=== PATIENT | female | born 1995 | race Caucasian/White ===

== ENCOUNTER 2016-08-14 19:30 | Emergency (ER) | payer OTHER ==
--- NOTE | ~2016-08-14 | ER ---
PATIENT'S NAME: CORINNA ANDUJAR I [facility] AGE: 20 Y [address] ROOM: [place] [id number] LOCATION: [facility] ADMIT DATE: 08/14/2016 ER/Outpatient Report DISCHARGE DATE: 08/14/2016 FAMILY PHYSICIAN: PHYSICIAN, NO ATTENDING PHYSICIAN: Judi Salcido Time of arrival: 1930 hours. Time of evaluation: 2000 hours. CHIEF COMPLAINT: This is a 20-year-old female. She was previously healthy. She is in after an attempted overdose. HISTORY OF PRESENT ILLNESS: She reports that she had a difficult day at work. She states shortly after she got home she impulsively took an overdose of her trazodone. She states she took 8 pills. She states she immediately regretted it and made herself throw up, but subsequently became nauseated and sleepy, and so she presented herself here. PAST MEDICAL HISTORY: Significant for anorexia, depression, and anxiety. CURRENT MEDICATIONS: See list. REVIEW OF SYSTEMS: She denies any recent illnesses. SOCIAL HISTORY: She smokes less than one-half pack per day. She uses marijuana daily. PHYSICAL EXAMINATION: GENERAL: An alert female in no acute distress. VITAL SIGNS: Stable. SKIN: Warm and dry. Color is normal. HEAD, EARS, EYES, NOSE, AND THROAT: Normal. NECK: Supple. HEART AND LUNGS: Normal. ABDOMEN: Soft. EXTREMITIES: Normal. NEUROLOGIC: Normal. LABORATORY DATA: EKG revealed normal sinus rhythm, normal corrected QT interval. The crisis PATIENT'S NAME: CORINNA ANDUJAR I [facility] AGE: 20 Y [address] ROOM: [place] [id number] LOCATION: [facility] ADMIT DATE: 08/14/2016 ER/Outpatient Report DISCHARGE DATE: 08/14/2016 FAMILY PHYSICIAN: PHYSICIAN, NO ATTENDING PHYSICIAN: Judi Salcido counselor was called and evaluated the patient. Safety contract was drawn up, and the patient was discharged in the care of her grandmother. ASSESSMENT: Overdose/suicide attempt. PLAN: Follow up with her regular doctor as arranged. JUDI SALCIDO MD JDB/modl /[id number] d: 08/15/16 0737 t: 08/17/16 0441, OUTPATIENT REPORT
[2016-08-14 20:12] LABS: BASOPHIL % 0.5 %; EOSINOPHIL % 0.4 %; HEMATOCRIT 39.4 % (33.0-46.0); HEMOGLOBIN 13.3 g/dL (11.0-15.0); IMMATURE GRANULOCYTE % 0.1 %; LYMPHOCYTE # 1.4 K/uL (0.8-4.0); LYMPHOCYTE % 17.8 %; MCH 29.2 pg (27.0-34.0); MCHC 33.8 gm/dL (32.0-36.5); MCV 86.6 fl (83.0-98.0); MONOCYTE # 0.2 K/uL (0.0-1.0); MPV 10.6 fl (9.4-12.4); NEUTROPHIL # (ANC) 6.1 K/uL (1.8-7.8); NEUTROPHIL % 78.2 %; NRBC % 0 /100WBC (0-0.00); PLATELET COUNT 183 K/uL (150-450); RBC 4.55 M/uL (3.50-5.00); RDW-CV 12.5 % (11.9-14.6); WBC 7.8 K/uL (4.0-11.0)
[2016-08-14 20:33] LABS: ALBUMIN 4.1 gm/dL (3.5-5.0); ALK PHOS 43 IU/L (33-138); ALT 16 IU/L (12-78); ANION GAP 15.9 (10.0-19.0); AST 36 IU/L (10-40); BLOOD UREA NITROGEN 9 mg/dL (6-24); CALCIUM 8.7 mg/dL (8.5-10.5); CHLORIDE 106 mMol/L (96-110); CO2 19 mMol/L (22-32); CREATININE 0.8 mg/dL (0.5-1.1); ESTIMATED GFR (MDRD EQUATION) > 60; POTASSIUM 3.9 mMol/L (3.7-5.1); SODIUM 137 mMol/L (135-145); TOTAL BILIRUBIN 0.4 mg/dL (0.0-1.5); TOTAL PROTEIN 7.7 g/dL (6.0-8.4)
[2016-08-14 20:34] LABS: BARBITURATE NEGATIVE (NEGATIVE); COCAINE NEGATIVE (NEGATIVE); OPIATES NEGATIVE (NEGATIVE)
[2016-08-14 20:37] LABS: AMPHETAMINE NEGATIVE (NEGATIVE)
== END 2016-08-14 22:01 | disposition disaster alternative care site (69) ==
LOC: GMED 19:30
PROVIDERS: Emergency Medicine
DX: T43.212A Poisoning by selective serotonin and norepinephrine reuptake inhibitors, intentional self-harm, initial encounter (principal); F32.9 Major depressive disorder, single episode, unspecified; F41.9 Anxiety disorder, unspecified; F17.210 Nicotine dependence, cigarettes, uncomplicated
CPT/HCPCS: G0480; J7030